=== PATIENT | female | born 1980 | race Caucasian/White ===

== ENCOUNTER 2016-06-10 13:49 | Emergency (ER) | payer OTHER ==
[2016-06-10 14:20] VITALS: RESP 18; O2SAT 100
[2016-06-10 14:28] VITALS: BMI 29.9
[2016-06-10] MEDS ORDERED: Sodium Chloride 0.9% 1,000 ML IV STA (14:38)
--- NOTE | 2016-06-10 14:53 | ED PDOC ---
Arrival/HPI - General Historian: Patient, Spouse - History of Present Illness Time/Duration: 24 hours Symptom Onset: Sudden Symptom Course: Worsening Quality: Cramping - General Chief Complaint: Flu-like Symptoms Time Seen by Provider: 06/10/16 14:17 - History of Present Illness Narrative History of Present Illness (Text): 06/10/16 14:45 35 year old Guinean speaking female with past medical history of recurrent UTI presents to [facility] with nausea, vomiting and diarrhea. 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 Patient's symptoms all started suddenly last night at 11pm. Patient reports she had non-bloody, non-bilious vomiting episodes x2 and yellow color diarrhea x 15. No prior history of the same. Patient also complains of having left upper quadrant abdominal pain that started around the same time as her nausea and vomiting. Patient reports having homemade sandwiches for dinner, where her son also felt ill after eating. Patient's son only vomited once and symptoms resolved soon after. Patient tried taking an over -the-counter pain medication (name unknown) but was not able to keep it down. Patient denies having headache, shortness of breath, chest, coughs, urinary symptoms. (Gabriel Aguilar) Past Medical History - Provider Review Nursing Documentation Reviewed: Yes - Past History Past History: No Previous - Infectious Disease Hx of Infectious Diseases: None - Tetanus Immunization Tetanus Immunization: Unknown - Past Medical History Past Medical History: No Previous - Cardiac Hx Cardiac Disorders: No - Pulmonary Hx Respiratory Disorders: No - Neurological Hx Neurological Disorder: No - HEENT Hx HEENT Disorder: No - Renal Hx Renal Disorder: No Hx Kidney Stones: Yes - Endocrine/Metabolic Hx Endocrine Disorders: No - Hematological/Oncological Hx Blood Disorders: No - Integumentary Hx Dermatological Disorder: Yes (Rash in right breast x 1 day.) - Musculoskeletal/Rheumatological Hx Musculoskeletal Disorders: No - Gastrointestinal Hx Gastrointestinal Disorders: No - Genitourinary/Gynecological Hx Genitourinary Disorders: Yes (UTI,Renal calculus.) - Psychiatric Hx Depression: Yes Hx Emotional Abuse: No Hx Physical Abuse: No Hx Substance Use: No - Past Surgical History Past Surgical History: No Previous - Surgical History Hx Tubal Ligation: Yes - Anesthesia Hx Anesthesia: Yes Hx Anesthesia Reactions: No Hx Malignant Hyperthermia: No - Suicidal Assessment Feels Threatened In Home Enviroment: No Family/Social History - Physician Review Nursing Documentation Reviewed: Yes Family/Social History: Diabetes Smoking Status: Never Smoked Hx Alcohol Use: No Hx Substance Use: No Hx Substance Use Treatment: No Allergies/Home Meds Allergies/Adverse Reactions: Allergies No Known Allergies Allergy (Verified 06/10/16 14:28) Review of Systems - Review of Systems Constitutional: Normal, Fatigue, Fevers Eyes: Normal. absent: Vision Changes, Eye Pain ENT: Normal. absent: Sore Throat, Rhinorrhea Respiratory: Normal. absent: SOB, Cough, Wheezing Cardiovascular: Normal. absent: Chest Pain, Edema Gastrointestinal: Normal, Abdominal Pain, Stool Changes, Diarrhea, Nausea, Vomiting Musculoskeletal: Normal Skin: Normal Neurological: Normal. absent: Headache, Dizziness Endocrine: Normal Psychiatric: Normal. absent: Depression Physical Exam Vital Signs Reviewed: Yes Temperature: Febrile Blood Pressure: Hypotensive Pulse: Tachycardic Respiratory Rate: Normal Appearance: Positive for: Comfortable Mental Status: Positive for: Alert and Oriented X 3, Lethargic. No: Confused, Agitated, Comatose - Systems Exam Head: Present: Atraumatic, Normocephalic Pupils: Present: PERRL Extroacular Muscles: Present: EOMI Conjunctiva: Present: Normal Mouth: Present: Dry Neck: Present: Normal Range of Motion Respiratory/Chest: Present: Clear to Auscultation, Good Air Exchange. No: Respiratory Distress, Accessory Muscle Use, Wheezes, Rhonchi Abdomen: Present: Tenderness (upper left quadrant tenderness), Normal Bowel Sounds, Other (Gale's sign negative). No: McBurney's Point Tender, Hernias Upper Extremity: Present: Normal Inspection. No: Cyanosis, Edema Lower Extremity: Present: Normal Inspection. No: Edema Neurological: Present: GCS=15, CN II-XII Intact, Speech Normal Skin: Present: Warm, Dry, Normal Color. No: Rashes, Diaphoretic Psychiatric: Present: Alert, Oriented x 3, Normal Insight, Normal Concentration Vital Signs Temp Pulse Resp BP Pulse Ox 06/10/16 16:00 99.1 F 91 H 18 103/65 100 06/10/16 15:26 102 H 18 101/61 100 06/10/16 14:20 100 F H 120 H 18 95/59 L 100 Medical Decision Making Re-evaluation Time: 15:57 ED Course and Treatment: 06/10/16 15:21 -IVF -Zofran -CBC -CMP -UA -Reassess 06/10/16 15:57 Patient receiving IVF and zofran, nausea and abdominal pain improving. 06/10/16 17:30 UA was negative for LE or WBC. Patient's symptoms resolved. All labs and vitals reviewed. Patient's presenting symptom is likely caused by viral gastroenteritis. Patient will be discharge on PO zofran. Instructed patient to take for nausea and vomiting as needed. (Gabriel Aguilar) pt well-appearing, abdomen soft and non-tender for my exam. disc plan for rx, follow up w pcp and return if worse. (Blake Owen) - Lab Interpretations Lab Results: 06/10/16 15:31 06/10/16 15:31 Lab Results 06/10/16 17:15: Urine Color Yellow, Urine Appearance Sl cloudy, Urine pH 6.0, Ur Specific [place] >= 1.030, Urine Protein 30 H, Urine Glucose (UA) Negative, Urine Ketones Negative, Urine Blood Moderate H, Urine Nitrate Negative, Urine Bilirubin Negative, Urine Urobilinogen 0.2, Ur Leukocyte Esterase Negative, Urine RBC 2 - 5, Urine WBC 0 - 2, Ur Epithelial Cells 1 - 3, Urine Bacteria Few 06/10/16 15:31: WBC 9.8, RBC 4.49, Hgb 13.3, Hct 39.1, MCV 87.1, MCH 29.6, MCHC 34.0, RDW 13.1, Plt Count 325, MPV 10.5, Gran % 87.2 H, Lymph % (Auto) 8.1 L, [place] % (Auto) 4.5, Eos % (Auto) 0.1 L, Baso % (Auto) 0.1, Gran # 8.53 H, Lymph # 0.8 L, [place] # 0.4, Eos # 0.0, Baso # 0.01, Sodium 138, Potassium 4.1, Chloride 100, Carbon Dioxide 23, Anion Gap 19, BUN 15, Creatinine 0.8, Est GFR ( Amer) > 60, Est GFR (Non-Af Amer) > 60, Random Glucose 84, Calcium 9.5, Total Bilirubin 1.7 H, AST 25, ALT 28, Alkaline Phosphatase 82, Total Protein 8.9 H, Albumin 4.5, Globulin 4.3, Albumin/Globulin Ratio 1.0 L - Medication Orders Current Medication Orders: Discontinued Medications Acetaminophen (Tylenol 325mg Tab) 650 mg PO STAT STA Stop: 06/10/16 15:27 Last Admin: 06/10/16 16:26 Dose: 650 MG MAR Pain/Vitals Document 06/10/16 16:26 BO (Rec: 06/10/16 16:26 [place] [id number]) Pain Reassessment Is This A Pain ReAssessment? Yes Sleep Is patient sleeping during reassessment? Yes Pain Scale Used Pain Scale Used Numeric Location Pain Location Body Supervisor Sample Preparation Description Throbbing Intensity 7 Sodium Chloride (Sodium Chloride 0.9%) 1,000 mls @ 999 mls/hr IV .Q1H1M STA Stop: 06/10/16 15:38 Last Admin: 06/10/16 15:30 Dose: 999 MLS/HR eMAR Start Stop Document 06/10/16 15:30 BO (Rec: 06/10/16 16:09 [place] [id number]) Intravenous Solution Start Date 06/10/16 Start Time 15:30 End Date 06/10/16 End time 16:30 Total Infusion Time 60 Ondansetron HCl (Zofran Inj) 4 mg IVP STAT STA Stop: 06/10/16 14:41 Last Admin: 06/10/16 15:30 Dose: 4 MG IVP Administration Document 06/10/16 15:30 BO (Rec: 06/10/16 16:09 [place] [id number]) Charges for Administration # of IVP Administrations 1 Disposition/Present on Arrival - Present on Arrival Any Indicators Present on Arrival: No History of DVT/PE: No History of Uncontrolled Diabetes: No Urinary Catheter: No History of Decub. Ulcer: No History Surgical Site Infection Following: None - Disposition Have Diagnosis and Disposition been Completed?: Yes Disposition Time: 17:44 - Disposition Diagnosis: Gastroenteritis Disposition: HOME/ ROUTINE Condition: STABLE Discharge Instructions (ExitCare): Gastroenteritis (ED) Print Language: LITHUANIAN Prescriptions: Ondansetron [Zofran] 4 mg PO Q8H PRN #20 tab PRN Reason: Nausea/Vomiting Referrals: Jon Perry MD [Primary Care Provider] - Follow up with primary Forms: WORK NOTE
[2016-06-10 15:36] LABS: ADD MANUAL DIFF? NO
[2016-06-10 16:13] LABS: ALKALINE PHOSPHATASE 82 U/L (38-133); ALT/SGPT 28 U/L (7-56); AST/SGOT 25 U/L (15-39); BILIRUBIN,TOTAL 1.7 mg/dL (0.2-1.3); BLOOD UREA NITROGEN 15 mg/dL (7-21); CALCIUM 9.5 mg/dL (8.4-10.5); CARBON DIOXIDE 23 mmol/L (21-33); CHLORIDE 100 mmol/L (98-107); GFR AFRICAN-AMERICAN > 60; GLUCOSE,RANDOM 84 mg/dL (70-110); POTASSIUM 4.1 mmol/L (3.6-5.0); SODIUM 138 mmol/L (132-148); TOTAL PROTEIN 8.9 g/dL (5.8-8.3)
[2016-06-10 16:28] LABS: BASO # 0.01 K/mm3 (0.0-2.0); BASO % 0.1 % (0.0-3.0); EOS % 0.1 % (1.5-5.0); GRAN # 8.53 (1.4-6.5); GRAN % 87.2 % (50.0-68.0); HEMATOCRIT 39.1 % (36.0-48.0); LYMPH # 0.8 (1.2-3.4); LYMPH % 8.1 % (22.0-35.0); MEAN CELL VOLUME 87.1 fL (80.0-105.0); MEAN CORPUSCULAR HEMOGLOBIN 29.6 pg (25.0-35.0); MEAN PLATELET VOLUME 10.5 fl (7.0-11.0); MONO # 0.4 (0.1-0.6); MONO % 4.5 % (1.0-6.0); PLATELET COUNT 325 10^3/uL (120.0-450.0); RED CELL DISTRIBUTION WIDTH 13.1 % (11.5-14.5); WHITE BLOOD COUNT 9.8 10^3/ul (4.5-11.0)
[2016-06-10 16:34] VITALS: BP 103/65; PULSE 91; TEMP 99.1
[2016-06-10 17:25] LABS: URINE BILIRUBIN NEGATIVE (NEGATIVE); URINE BLOOD MODERATE (NEGATIVE); URINE GLUCOSE (UA) NEGATIVE (NEGATIVE); URINE KETONE NEGATIVE (NEGATIVE); URINE LEUKOCYTE ESTERASE NEGATIVE Leu/uL (NEGATIVE); URINE PROTEIN 30 mg/dL (<30 mg/dL); URINE UROBILINOGEN 0.2 E.U./dL (<1 E.U./dL)
[2016-06-10 17:27] LABS: URINE APPEARANCE SL CLOUDY (CLEAR); URINE COLOR YELLOW (YELLOW)
[2016-06-10 17:39] LABS: URINE BACTERIA FEW (NEG); URINE WBC 0 - 2 /hpf (0-6)
== END 2016-06-10 18:07 | disposition home or self-care (01) ==
LOC: ED 13:49
DX: K52.9 Noninfective gastroenteritis and colitis, unspecified (principal)
CPT/HCPCS: 80053; 81001; 85025; 96361; 96374; 99283; J2405; J7040

== ENCOUNTER 2017-04-13 00:45 | Emergency (ER) | payer OTHER ==
[2017-04-13 01:01] VITALS: BMI 27.3
[2017-04-13 01:09] VITALS: TEMP 98.6; O2SAT 99
--- NOTE | 2017-04-13 01:15 | ED PDOC ---
Arrival/HPI - General Chief Complaint: Chest Pain Time Seen by Provider: 04/13/17 01:10 Historian: Patient, Spouse - History of Present Illness Narrative History of Present Illness (Text): you were treated in the ED today for having left sided chest discomfort, and mild epigastric discomfort for about 1 day but, and you were otherwise without any nausea/vomiting/headache/dizziness/difficulty breathing/abdomen pain/ numbness/tingling/loss of limb function/thoughts to harm yourself or others or hallucinations/travel/prior blood clots/prior cancer/hormonal use. 04/13/17 01:13 Time/Duration: 24 hours Symptom Onset: Gradual Symptom Course: Intermittent Quality: Aching Severity Level: 2 Activities at Onset: Rest Context: Sitting Past Medical History - Provider Review Nursing Documentation Reviewed: Yes - Travel History Have you recently traveled outside [place] w/in the past 3 mons?: No - Past History Past History: No Previous - Infectious Disease Hx of Infectious Diseases: None - Tetanus Immunization Tetanus Immunization: Unknown - Reproductive Menopause: No - Past Medical History Past Medical History: No Previous - Cardiac Hx Cardiac Disorders: No - Pulmonary Hx Respiratory Disorders: No - Neurological Hx Neurological Disorder: No - HEENT Hx HEENT Disorder: No - Renal Hx Renal Disorder: No Hx Kidney Stones: Yes - Endocrine/Metabolic Hx Endocrine Disorders: No - Hematological/Oncological Hx Blood Disorders: No - Integumentary Hx Dermatological Disorder: Yes (Rash in right breast x 1 day.) - Musculoskeletal/Rheumatological Hx Musculoskeletal Disorders: No - Gastrointestinal Hx Gastrointestinal Disorders: No - Genitourinary/Gynecological Hx Genitourinary Disorders: Yes (UTI,Renal calculus.) - Psychiatric Hx Depression: Yes Hx Emotional Abuse: No Hx Physical Abuse: No Hx Substance Use: No - Past Surgical History Past Surgical History: No Previous - Surgical History Hx Tubal Ligation: Yes - Anesthesia Hx Anesthesia: Yes Hx Anesthesia Reactions: No Hx Malignant Hyperthermia: No - Suicidal Assessment Feels Threatened In Home Enviroment: No Family/Social History - Physician Review Nursing Documentation Reviewed: Yes Family/Social History: No Known Family HX Smoking Status: Never Smoked Hx Alcohol Use: No Hx Substance Use: No Hx Substance Use Treatment: No Allergies/Home Meds Allergies/Adverse Reactions: Allergies No Known Allergies Allergy (Verified 06/10/16 14:28) Review of Systems - Review of Systems Constitutional: Normal Eyes: Normal ENT: Normal Respiratory: Normal Cardiovascular: Chest Pain Gastrointestinal: Normal Genitourinary Female: Normal Musculoskeletal: Normal Skin: Normal Neurological: Normal Endocrine: Normal Hemo/Lymphatic: Normal Psychiatric: Normal Physical Exam Vital Signs Reviewed: Yes Vital Signs Temp Pulse Resp BP Pulse Ox 04/13/17 01:01 98.6 F 81 20 128/84 99 Temperature: Afebrile Blood Pressure: Hypertensive Pulse: Regular Respiratory Rate: Normal Appearance: Positive for: Well-Appearing, Non-Toxic, Comfortable Pain Distress: None Mental Status: Positive for: Alert and Oriented X 3 - Systems Exam Head: Present: Atraumatic, Normocephalic Pupils: Present: PERRL Extroacular Muscles: Present: EOMI Conjunctiva: Present: Normal Ears: Present: Normal Mouth: Present: Moist Mucous Membranes Pharnyx: Present: Normal Nose (External): Present: Atraumatic Nose (Internal): Present: Normal Inspection Neck: Present: Normal Range of Motion Respiratory/Chest: Present: Clear to Auscultation, Good Air Exchange Cardiovascular: Present: Regular Rate and Rhythm Abdomen: No: Tenderness, Distention, Normal Bowel Sounds, Peritoneal Signs, Rebound, Guarding, McBurney's Point Tender, Rovsing's Sign Present, Hernias, Feeding Tubes, Ostomy Tubes, Mass/Organomegaly, Scars, Other Back: Present: Normal Inspection Upper Extremity: Present: Normal Inspection Lower Extremity: Present: Normal Inspection Neurological: Present: GCS=15, CN II-XII Intact, Speech Normal, Motor Func Grossly Intact Skin: Present: Warm, Normal Color Psychiatric: Present: Alert, Oriented x 3, Normal Insight, Normal Concentration Medical Decision Making ED Course and Treatment: you were treated in the ED today for having left sided chest discomfort, and mild epigastric discomfort for about 1 day but, and you were otherwise without any nausea/vomiting/headache/dizziness/difficulty breathing/abdomen pain/ numbness/tingling/loss of limb function/thoughts to harm yourself or others or hallucinations/travel/prior blood clots/prior cancer/hormonal use. you were sitting up, comfortable, alert/oriented, good strength/sensation, no abdomen tenderness, pink skin, no fever temp 98.6, stable heart rate 81, stable breathing rate 20, excellent oxygen level 99 room air, elevated blood pressure 124/84 which we recommend followup primary care 2-3 days repeat and determine further treatment, no infection count on blood tests 10, stable blood levels hemaglobin/platelet 11.6/301, stable chemistry, heart blood test negative, urine test negative, radiology chest xray initial no acute findings, ECG normal sinus rhythm, aspirin, protonix, observation done in the ED, counselled to monitor symptoms, and discharged home with . 1. recommend followup primary care 1-2 days to determine further care, referral to cardiology , referral to gastroenterology clinics. 2. if any worsening pain, fever, chills , nausea, vomiting, any medical condition then return to the ED. 04/13/17 01:15 PERC negative 04/13/17 02:25 04/13/17 03:37 Reassessment Condition: Improved - Lab Interpretations Lab Results: 04/13/17 01:30 04/13/17 01:30 Lab Results 04/13/17 01:30: Sodium 141, Potassium 3.7, Chloride 104, Carbon Dioxide 24, Anion Gap 16, BUN 15, Creatinine 0.8, Est GFR ( Amer) > 60, Est GFR (Non- Af Amer) > 60, Random Glucose 92, Calcium 9.6, Magnesium 1.9, Total Bilirubin 0.5, AST 43 H, ALT 30, Alkaline Phosphatase 73, Lactate Dehydrogenase 415, Total Creatine Kinase 131, Troponin I < 0.01, Total Protein 7.6, Albumin 4.0, Globulin 3.6, Albumin/Globulin Ratio 1.1 04/13/17 01:30: PT 11.6, INR 1.02, APTT 29.2 04/13/17 01:30: WBC 10.0, RBC 3.99, Hgb 11.6 L, Hct 34.6 L, MCV 86.7, MCH 29.1, MCHC 33.5, RDW 13.1, Plt Count 301, MPV 9.5, Gran % 61.1, Lymph % (Auto) 30.1, [place] % (Auto) 7.3 H, Eos % (Auto) 1.1 L, Baso % (Auto) 0.4, Gran # 6.13, Lymph # (Auto) 3.0, [place] # (Auto) 0.7 H, Eos # (Auto) 0.1, Baso # (Auto) 0.04 I have reviewed the lab results: Yes - RAD Interpretation Radiology Orders: 04/13/17 01:11 CHEST TWO VIEWS (PA/LAT) [RAD] Stat [employer] Advisory Services Manager: ED Physician (cxr no acute) - EKG Interpretation Interpreted by ED Physician: Yes (NSR, flipped t waves avr, v1) Type: 12 lead EKG - Medication Orders Current Medication Orders: Discontinued Medications Aspirin (Aspirin) 325 mg PO STAT STA Stop: 04/13/17 01:12 Last Admin: 04/13/17 01:32 Dose: 325 mg Pantoprazole Sodium (Protonix Inj) 40 mg IVP STAT STA Stop: 04/13/17 01:13 Last Admin: 04/13/17 01:32 Dose: 40 mg IVP Administration Document 04/13/17 01:32 AB (Rec: 04/13/17 01:32 AB [id number] Charges for Administration # of IVP Administrations 1 Disposition/Present on Arrival - Present on Arrival Any Indicators Present on Arrival: No History of DVT/PE: No History of Uncontrolled Diabetes: No Urinary Catheter: No History of Decub. Ulcer: No History Surgical Site Infection Following: None - Disposition Have Diagnosis and Disposition been Completed?: Yes Diagnosis: Chest pain Disposition: HOME/ ROUTINE Disposition Time: 03:38 Patient Plan: Discharge Condition: IMPROVED Discharge Instructions (ExitCare): Chest Pain (ED) Additional Instructions: you were treated in the ED today for having left sided chest discomfort, and mild epigastric discomfort for about 1 day but, and you were otherwise without any nausea/vomiting/headache/dizziness/difficulty breathing/abdomen pain/ numbness/tingling/loss of limb function/thoughts to harm yourself or others or hallucinations/travel/prior blood clots/prior cancer/hormonal use. you were sitting up, comfortable, alert/oriented, good strength/sensation, no abdomen tenderness, pink skin, no fever temp 98.6, stable heart rate 81, stable breathing rate 20, excellent oxygen level 99 room air, elevated blood pressure 124/84 which we recommend followup primary care 2-3 days repeat and determine further treatment, no infection count on blood tests 10, stable blood levels hemaglobin/platelet 11.6/301, stable chemistry, heart blood test negative, urine test negative, radiology chest xray initial no acute findings, ECG normal sinus rhythm, aspirin, protonix, observation done in the ED, counselled to monitor symptoms, and discharged home with . 1. recommend followup primary care 1-2 days to determine further care, referral to cardiology , referral to gastroenterology clinics. 2. if any worsening pain, fever, chills , nausea, vomiting, any medical condition then return to the ED. Referrals: Jon Perry MD [Primary Care Provider] - Follow up with primary Forms: [employer] (Khmer)
[2017-04-13 01:42] LABS: BASO # 0.04 K/mm3 (0.0-2.0); BASO % 0.4 % (0.0-3.0); EOS # 0.1 (0.0-0.7); EOS % 1.1 % (1.5-5.0); GRAN # 6.13 (1.4-6.5); GRAN % 61.1 % (50.0-68.0); HEMOGLOBIN 11.6 g/dL (12.0-16.0); LYMPH % 30.1 % (22.0-35.0); MEAN CELL VOLUME 86.7 fl (80.0-105.0); MEAN CORPUSCULAR HEMOGLOBIN 29.1 pg (25.0-35.0); MEAN CORPUSCULAR HGB CONC 33.5 g/dl (31.0-37.0); MEAN PLATELET VOLUME 9.5 fl (7.0-11.0); MONO # 0.7 (0.1-0.6); MONO % 7.3 % (1.0-6.0); RBC 3.99 10^6/uL (3.5-6.1); RED CELL DISTRIBUTION WIDTH 13.1 % (11.5-14.5)
[2017-04-13 01:50] LABS: ALB/GLOB RATIO 1.1 (1.1-1.8); ALT/SGPT 30 U/L (7-56); AST/SGOT 43 U/L (14-36); BLOOD UREA NITROGEN 15 mg/dL (7-21); CALCIUM 9.6 mg/dL (8.4-10.5); GFR AFRICAN-AMERICAN > 60; GFR NON-AFRICAN AMERICAN > 60; MAGNESIUM 1.9 mg/dL (1.7-2.2)
[2017-04-13 02:02] LABS: TROPONIN I < 0.01 ng/mL
[2017-04-13 02:04] LABS: INR 1.02 (0.93-1.08); PARTIAL THROMBOPLASTIN TIME 29.2 Seconds (25.1-36.5); PROTHROMBIN TIME 11.6 SECONDS (9.4-12.5)
[2017-04-13 03:50] VITALS: BP 112/70; PULSE 74; RESP 18
--- NOTE | 2017-04-13 10:37 | RAD ---
HISTORY: Chest pain. COMPARISON: 10/16/2014 TECHNIQUE: Chest PA and lateral FINDINGS: LUNGS: No active pulmonary disease. PLEURA: No significant pleural effusion identified. No pneumothorax apparent. CARDIOVASCULAR: No radiographic findings to suggest acute or significant cardiovascular disease. OSSEOUS STRUCTURES: No significant abnormalities. VISUALIZED UPPER ABDOMEN: Normal. OTHER FINDINGS: None. IMPRESSION: No active disease. No significant interval change compared to the prior examination(s).
--- NOTE | 2017-04-13 21:34 | CARD ---
APPROVED REPORT EKG Measurement Heart [id number] <Conclusion> Normal sinus rhythm Normal ECG
== END 2017-04-13 03:50 | disposition home or self-care (01) ==
LOC: ED 00:45
DX: R07.9 Chest pain, unspecified (principal)
CPT/HCPCS: 71046; 80053; 82550; 83615; 83735; 84484; 85025; 85610; 85730; 93005; 96374; 99283; C9113